=== PATIENT | male | born 1970 | race Caucasian/White ===

== ENCOUNTER 2017-10-12 18:18 | Emergency (ER) | payer MEDICAID ==
[~2017-10-12 18:18] MED LIST: ATEN50; ATENPOW10; ENAL10; GLUCTAB OR; LOVASTATIN
[2017-10-12 18:31] VITALS: BP 138/87; PULSE 103; RESP 16; TEMP 98.2; O2SAT 97
[2017-10-12] MEDS ORDERED: BACL10TA PO (21:06)
[2017-10-12] MEDS ORDERED: DICL75TA PO (21:06)
--- NOTE | 2017-10-12 21:09 | PD ---
HPI Chief Complaint: Back/ Neck Pain or Injury Time Seen by Provider: 21:05 Travel History International Travel<30 days: No Contact w/Intl Traveler<30days: No Traveled to known affect area: No History of Present Illness HPI 47-year-old male presents for evaluation of left-sided lower back pain. He reports that 3 days ago he made a twisting motion at his torso and since then he has had pain in his left lower back. He reports that the pain is a sharp pain which is worse with movement. Denies abdominal pain, testicular scrotal pain, nausea or vomiting, diarrhea or constipation, radicular symptoms, bowel or bladder incontinence, saddle anesthesia, fevers or chills. He has been using Motrin and [id number] analgesic cream with minimal relief. He has no other complaints at this time. [facility] Past Medical History Cardiovascular Problems: Yes High Cholesterol: Yes Diabetes: Yes Diminished Hearing: No Social History Alcohol Use: No Tobacco Use: No Substance Use: No Allergies-Medications (Allergen,Severity, Reaction): Coded Allergies: No Known Allergies (Unverified , 02/09/12) Reported Meds & Prescriptions Reported Meds & Active Scripts Active Diclofenac Sodium DR (Diclofenac Sodium) 75 Mg Tabdr 75 Mg PO BID 10 Days Baclofen 10 Mg Tab 10 Mg PO Q8HR 10 Days Reported Vasotec 10 Mg Tab (Enalapril Maleate) 10 Mg Tab 10 Mg .XX Tenormin 50 Mg Tab (Atenolol) 50 Mg Tab 50 Mg .XX Glucophage XR 24 HR (Metformin HCl) 500 Mg Tab 500 Mg OR BID [Lovastatin] [Atenolol] Review of Systems Except as stated in HPI: all other systems reviewed are Neg Physical Exam Narrative GENERAL: Well-developed well-nourished male in no acute distress SKIN: Warm and dry. No flank or periumbilical ecchymosis HEAD: Atraumatic. Normocephalic. EYES: Pupils equal and round. No scleral icterus. No injection or drainage. ENT: No nasal bleeding or discharge. Mucous membranes pink and moist. NECK: Trachea midline. No JVD. CARDIOVASCULAR: Regular rate and rhythm. No murmur appreciated. RESPIRATORY: No accessory muscle use. Clear to auscultation. Breath sounds equal bilaterally. GASTROINTESTINAL: Abdomen soft, non-tender, nondistended. Hepatic and splenic margins not palpable. MUSCULOSKELETAL: No obvious deformities. No reproducible tenderness to palpation along the back or paravertebral musculature. There is no CVA tenderness. The patient has obvious pain with rotation at the torso. No lower extremity muscle weakness. NEUROLOGICAL: Awake and alert. No obvious cranial nerve deficits. Motor grossly within normal limits. Normal speech. Data Data Last Documented VS Vital Signs Date Time Temp Pulse Resp B/P (MAP) Pulse Ox O2 Delivery O2 Flow Rate FiO2 10/12/17 18:31 98.2 103 16 138/87 (104) 97 Orders Orders Ed Discharge Order (10/12/17 21:05) Ketorolac Inj (Toradol Inj) (10/12/17 21:15) [facility] Medical Decision Making Medical Screen Exam Complete: Yes Emergency Medical Condition: Yes Medical Record Reviewed: Yes Differential Diagnosis Lumbar strain, spasm, fracture, herniated nucleus pulposus, degenerative disc disease Narrative Course Examination is wholly consistent with lumbar strain. The patient will be treated with a short course of NSAIDs and muscle relaxants, recommended outpatient follow-up with primary care physician. Diagnosis Primary Impression: Lumbar strain Additional Instructions: Medication as needed. Take diclofenac with meals. Do not drive or drink alcohol and taking baclofen. Avoid strenuous activity or heavy lifting. Follow -up with primary care physician in 1-2 weeks. Return for any emergent medical conditions. Med/Other Pt SpecificInfo: Prescription(s) given Scripts Diclofenac Sodium DR (Diclofenac Sodium DR) 75 Mg Tabdr 75 MG PO BID for 10 Days, #20 TAB 0 Refills Prov: Chirag Lara MD 10/12/17 Baclofen (Baclofen) 10 Mg Tab 10 MG PO Q8HR for 10 Days, TAB 0 Refills Prov: Chirag Lara MD 10/12/17 Disposition: 01 DISCHARGE HOME Condition: Stable Dioni Flores Oct 12, 2017 21:09
[2017-10-12] MEDS ORDERED: KETOROLAC TROMETHAMINE 60 MG/2 ML (IM) VIAL IM ONE (21:15)
== END 2017-10-12 21:37 | disposition home or self-care (01) ==
LOC: NEPK 18:18
DX: S39.012A Strain of muscle, fascia and tendon of lower back, initial encounter (principal); E78.00 Pure hypercholesterolemia, unspecified; E11.9 Type 2 diabetes mellitus without complications; X50.1XXA Overexertion from prolonged static or awkward postures, initial encounter; Z79.84 Long term (current) use of oral hypoglycemic drugs; Z79.899 Other long term (current) drug therapy
CPT/HCPCS: 96372; 99283; J1885